=== PATIENT | male | born 1970 | race Caucasian/White ===

== ENCOUNTER 2023-02-11 11:31 | Emergency (ER) | payer OTHER ==
[~2023-02-11] VITALS: Ht 182.9 cm; Wt 77.0 kg
[2023-02-11] VITALS (7 sets, daily range): BP systolic 116–140; BP diastolic 74–90
[2023-02-11 12:16] LABS: BASO% 0.3 % (0-3); HEMATOCRIT 38.9 % (39.0-50.0); HEMOGLOBIN 12.9 g/dl (14.0-18.0); IMMATURE GRANULOCYTES 0.1 % (0.0-5.0); LYMPH% 24.3 % (15-41); MEAN CELL VOLUME 88.6 fL CALC (80.0-100.0); MEAN CORPUSCULAR HGB 29.4 pG CALC (26.0-32.0); MEAN CORPUSCULAR HGB CONC 33.2 g/dL CAL (32.0-36.0); MONO% 10.4 % (2-13); NEUT# 5.48 thou/uL (1.82-7.42); NEUT% 61.9 % (42-76); RED BLOOD COUNT 4.39 mill/uL (4.70-6.10); RED CELL DISTRI WIDTH 12.4 % (11.5-15.5)
[2023-02-11 12:28] LABS: ALBUMIN 4.1 g/dL (3.2-5.0); ALKALINE PHOSPHATASE 69 u/l (38-126); ANION GAP 12 (6-22 (CALC)); BILIRUBIN, TOTAL 0.3 mg/dL (0.2-1.3); BUN 17 mg/dL (9-20); BUN/CREATININE RATIO 18 (12-20 (CALC)); CARBON DIOXIDE 28 mmol/l (22-30); CHLORIDE 106 mmol/l (95-108); GFR FOR AFR.AMER. > 60 ML/MIN (>=60 (CALC)); GFR OTHER RACES > 60 ML/MIN (>=60 (CALC)); POTASSIUM 4.3 mmol/l (3.5-5.1); SGOT/AST 33 u/l (17-59); SODIUM 142 mmol/l (137-146); TOTAL PROTEIN 7.2 g/dL (6.3-8.2)
[2023-02-11 12:54] LABS: C-REACTIVE PROTEIN 2.3 mg/dL (0-0.9)
[2023-02-11] MEDS ORDERED: LORTAB 5/3255 MG PO (13:11)
[2023-02-11] MEDS ORDERED: KEFLEX500 MG PO (13:11)
[2023-02-11] MEDS ORDERED: NAPROXEN500 MG PO (13:11)
== END 2023-02-11 14:20 | disposition home or self-care (01) | DRG 605 ==
LOC: ED 11:31
PROVIDERS: Nurse Practitioner
DX: S61.212A Laceration without foreign body of right middle finger without damage to nail, initial encounter (principal); S61.214A Laceration without foreign body of right ring finger without damage to nail, initial encounter; L03.011 Cellulitis of right finger; F17.210 Nicotine dependence, cigarettes, uncomplicated; W20.8XXA Other cause of strike by thrown, projected or falling object, initial encounter; Y93.E9 Activity, other interior property and clothing maintenance; Y92.009 Unspecified place in unspecified non-institutional (private) residence as the place of occurrence of the external cause

== ENCOUNTER 2023-02-13 10:14 | Emergency (ER) | payer OTHER ==
[~2023-02-13] VITALS: Ht 182.9 cm; Wt 77.1 kg
[~2023-02-13 10:14] MED LIST: KEFLEX500 MG PO; LORTAB 5/3255 MG PO; NAPROXEN500 MG PO
[2023-02-13] MEDS ORDERED: BACTRIM DS1 TAB PO (10:50)
[2023-02-13] MEDS ORDERED: OMNI-PAC300 MG PO (10:50)
[2023-02-13 10:54] VITALS: BP 121/78
[2023-02-13] MEDS ORDERED: HYDROCO/APAP1 T10 PO (10:56)
== END 2023-02-13 11:03 | disposition home or self-care (01) | DRG 603 ==
LOC: ED 10:14
DX: L03.113 Cellulitis of right upper limb (principal); F17.210 Nicotine dependence, cigarettes, uncomplicated